=== PATIENT | male | born 1960 ===

== ENCOUNTER 2016-09-15 06:24 | Observation (INO) | payer OTHER, BC ==
[2016-09-15] MEDS ORDERED: TDAP Vaccine 0.5 mL Syr IM ONE (07:27)
--- NOTE | 2016-09-15 07:50 | ED PDOC ---
HPI: Head Injury Time Seen by Provider: 09/15/16 07:12 Chief Complaint (Nursing): Trauma Chief Complaint (Provider): Trauma History Per: Patient History/Exam Limitations: no limitations Injury Occurred (Timing): Just Before Arrival Patient States: Fell Striking Head Severity: Mild Loss Of Consciousness: No Additional Complaint(s): Patient is a 56 year old male who presents to ED for evaluation of a head injury sustained this morning. Patient states he was walking in the parking lot of his job when he slipped and fell backwards striking his head. Denies LOC, nausea or blurred vision. Notes pain to the area only. Past Medical History Reviewed: Historical Data, Nursing Documentation, Vital Signs Vital Signs: Last Vital Signs Temp 98 F 09/15/16 06:26 Pulse 72 09/15/16 06:26 Resp 16 09/15/16 06:26 BP 153/83 H 09/15/16 06:26 Pulse Ox 98 09/15/16 06:26 - Medical History PMH: Asthma, Hypercholesterolemia - Surgical History Surgical History: No Surg Hx - Family History Family History: States: No Known Family Hx - Living Arrangements Living Arrangements: With Family - Home Medications Home Medications: Ambulatory Orders Medication Instructions Recorded No Known Home Med 09/15/16 - Allergies Allergies/Adverse Reactions: Allergies Allergy/AdvReac Type Severity Reaction Status Date / Time No Known Allergies Allergy Verified 09/15/16 07:56 Review of Systems ROS Statement: Except As Marked, All Systems Reviewed And Found Negative Constitutional: Negative for: Weakness Eyes: Negative for: Vision Change Cardiovascular: Negative for: Chest Pain Gastrointestinal: Negative for: Nausea, Vomiting Musculoskeletal: Negative for: Neck Pain, Back Pain Neurological: Positive for: Headache. Negative for: Weakness, Numbness, Confusion, Dizziness Physical Exam - Reviewed Nursing Documentation Reviewed: Yes Vital Signs Reviewed: Yes - Physical Exam Appears: Positive for: Non-toxic, No Acute Distress Head Exam: Negative for: ATRAUMATIC (2cm laceration to occipital scalp mild active bleeding) Skin: Positive for: Normal Color, Warm Eye Exam: Positive for: Normal appearance, EOMI, PERRL Neck: Positive for: Normal, Painless ROM Cardiovascular/Chest: Positive for: Regular Rate, Rhythm. 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 Negative for: Motor/Sensory Deficits - ECG O2 Sat by Pulse Oximetry: 98 (RA) Pulse Ox Interpretation: Normal Medical Decision Making Medical Decision Making: Time: 709 Initial impression: Head injury Initial plan: -- tetanus -- CT-head Time: 834 CT-head results reviewed Impression: Small extra-axial right convexity high attenuation suspicious for subdural hemorrhage with maximum thickness of 4.5 mm. Close follow up reassessment after 6-12 hours is recommended Scribe Attestation: Documented by Thu Manriquez acting as a scribe for Yani Marie MD MD Scribe Attestation: All medical record entries made by the Scribe were at my direction and personally dictated by me. I have reviewed the chart and agree that the record accurately reflects my personal performance of the history, physical exam, medical decision making, and the department course for this patient. I have also personally directed, reviewed, and agree with the discharge instructions and disposition. 8.45a - CT findings noted. Awaiting neurosurgery to return phone call. Based on radiology recommendation, case d/w Dr. Bynum for observation admission. Disposition - Clinical Impression Clinical Impression: Subdural hematoma - Patient ED Disposition Is Patient to be Admitted: Yes Doctor Will See Patient In The: Hospital - Disposition Disposition: Transfer of Care Disposition Time: 08:55 Condition: FAIR - Pt Status Changed To: Hospital Disposition Of: Observation - POA Present On Arrival: Falls Or Trauma
--- NOTE | 2016-09-15 08:38 | CT ---
PROCEDURE: CT HEAD WITHOUT CONTRAST. HISTORY: slip fall with 2cm lac on occiput COMPARISON: None available. TECHNIQUE: Axial computed tomography images were obtained through the head/brain without intravenous contrast. Radiation dose: Total exam DLP = 861.23 mGy-cm. FINDINGS: HEMORRHAGE: There is trace/ small amount of extra-axial likely subdural hematoma at the right convexity best seen on the coronal images series 601 image 45. BRAIN: No mass effect or edema. No atrophy or chronic microvascular ischemic changes. VENTRICLES: Unremarkable. No hydrocephalus. CALVARIUM: Unremarkable. PARANASAL SINUSES: Moderate sinuses mucosal thickening seen more prominent in the ethmoid sinuses. MASTOID AIR CELLS: Unremarkable as visualized. No inflammatory changes. OTHER FINDINGS: None. IMPRESSION: Small extra-axial right convexity high attenuation suspicious for subdural hemorrhage with maximum thickness of 4.5 millimeter. Close follow-up reassessment after 06-12 hours is recommended. Moderate sinuses mucosal disease.
[2016-09-15 09:38] LABS: BASO # 0.2 K/uL (0.0-0.2); BASO % 1.2 % (0.0-2.0); EOS # 0.1 K/uL (0.0-0.7); EOS % 0.6 % (0.0-4.0); HEMATOCRIT 46.7 % (35.0-51.0); LYMPH # 1.6 K/uL (1.0-4.3); LYMPH % 11.6 % (20.0-40.0); MEAN CELL VOLUME 95.6 fl (80.0-94.0); MEAN CORPUSCULAR HEMOGLOBIN 31.8 pg (27.0-31.0); MEAN CORPUSCULAR HGB CONC 33.2 g/dL (33.0-37.0); MEAN PLATELET VOLUME 9.7 fl (7.2-11.7); MONO # 0.7 K/uL (0.0-0.8); MONO % 5.2 % (0.0-10.0); NEUT # 11.2 K/uL (1.8-7.0); NEUT % 81.4 % (50.0-75.0); WHITE BLOOD COUNT 13.8 K/uL (4.8-10.8)
[2016-09-15 09:45] LABS: BLOOD UREA NITROGEN 13 mg/dl (9-20); CALCIUM 9.9 mg/dL (8.4-10.2); CARBON DIOXIDE 29 mmol/L (22-30); CHLORIDE 99 mmol/L (98-107); GFR AFRICAN-AMERICAN > 60; GLUCOSE,RANDOM 107 mg/dL (75-110); POTASSIUM 4.3 MMOL/L (3.6-5.0); SODIUM 142 mmol/l (132-148)
--- NOTE | 2016-09-15 10:10 | HP ---
The patient is a 56-year-old male who had an accidental fall in the snow while attempting to get his bus at work. 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 He indicates that he did not lose consciousness and denies any headaches or dizziness. He had yumiko put in the back of his head where he had a scalp laceration in the occipital area. His CAT scan in the Emergency Room was remarkable for small extraaxial right convexity high attenuation suspicious for subdural hemorrhage with maximum thickness 4.5 mL. Close f ollowup was recommended for 6-12 hours. PAST MEDICAL HISTORY: Asthma and hyperlipidemia. FAMILY HISTORY: Noncontributory. 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 PHYSICAL EXAMINATION: GENERAL: The patient is alert and oriented, appears to be in no apparent distress. VITAL SIGNS: Blood pressure 144/56, pulse of 79, respiratory rate of 19. He is afebrile. O2 sat is 98% on room air. SKIN: Shows fair turgor. HEENT: Pupils equal and react to light and accommodation. There is a small laceration over the occi pital area with [address] NECK: JVP flat. LUNGS: Clear. HEART: Regular. No murmurs or gallops. ABDOMEN: Soft, nontender, no organomegaly. EXTREMITIES: Show no edema or cyanosis. GENITAL AND RECTAL: Deferred. CENTRAL NERVOUS SYSTEM: Grossly intact with no gross neuro deficits. LABORATORY DATA: Remarkable for WBC of 13.8, hemoglobin of 15.5, platelet count of 247,000. Sodium 142, potassium 4.3, BUN of 13, creatinine 0.9. IMPRESSION: Accidental fall with head trauma and small subdural hematoma. The Emergency Room doctor discussed the case with neurosurgeon rn practitioner and the advice was to repeat CT scan of the brain in ab out 6 hours and if clinically stable and no progression of the bleed, the patient could be discharged after appropriate period of observation later tonight. PLAN: To observe the patient in telemetry with neuro checks, repeat scan in 6 hours. Further therap y will depend on findings on the scan. The case was discussed at length with the patient was alert a nd oriented and understands the risks and benefits of observation and need to stay in hospital for th e next 12-24 hours. Harvinder Bynum MD cc: [id number] TT: 09/15/2016 10:09:43 tn
--- NOTE | 2016-09-15 15:02 | EEG ---
DATE: 09/15/2016 This is a 16-channel electroencephalogram of awake and drowsy adult. During the study, photic stimul ation was performed. Hyperventilation was not performed. The resting electroencephalogram consists of 30-50 microvolt, 9-11 Hz alpha activity seen at parietal and occipital leads. Anteriorly fast activity superimposed with 2-3 Hz delta activity seen. Interm ittent parietal lead artifacts noted with probably the muscle artifacts. The photic stimulation did not evoke driving response noted at 2-20 Hz. IMPRESSION: This is a normal electroencephalogram of awake and drowsy adult. During the study, neit her electroencephalographic paroxysmal activities nor focal slowing noted. Deepak Hernandez MD cc: [id number] TT: 09/15/2016 15:02:12 Confirmation # [id number] Dictation # [id number] tn
--- NOTE | 2016-09-15 15:41 | CT ---
PROCEDURE: CT HEAD WITHOUT CONTRAST. HISTORY: subdural hematoma/hx of fall COMPARISON: 09/15/2016 at 8:03 a.m. TECHNIQUE: Axial computed tomography images were obtained through the head/brain without intravenous contrast. Radiation dose: Total exam DLP = 843.88 mGy-cm. FINDINGS: HEMORRHAGE: There is no extra-axial hemorrhage. Curvilinear high attenuation seen on the current examination and an earlier examination of the same day represents a cortical vein. It can be seen draining into the superior sagittal sinus on coronal reformats on both the current and earlier examinations. The relative high attenuation of this cortical vein is also seen in the vessels of the [place] and likely represents dehydration/ hemoconcentration. There is no extra-axial hemorrhage. BRAIN: No mass effect or edema. No atrophy or chronic microvascular ischemic changes. VENTRICLES: Unremarkable. No hydrocephalus. CALVARIUM: Unremarkable. PARANASAL SINUSES: Chronic frontal, ethmoid and sphenoid sinusitis. MASTOID AIR CELLS: Unremarkable as visualized. No inflammatory changes. OTHER FINDINGS: None. IMPRESSION: No extra-axial hemorrhage. Prominent right-sided cortical vein. Right intracranial cerebral vessels and venous sinuses likely due to dehydration/hemoconcentration.
--- NOTE | 2016-09-15 16:17 | MRI ---
PROCEDURE: MRI BRAIN WITHOUT CONTRAST HISTORY: subdural hematoma COMPARISON: None. TECHNIQUE: Multiplanar, multisequence MR images of the brain were obtained without intravenous contrast enhancement. FINDINGS: HEMORRHAGE: No evidence of extra-axial or intra-axial hematoma. DWI: No evidence of an acute or early subacute infarction. BRAIN PARENCHYMA: No mass effect or edema. Few small foci of hyperintense T2 and FLAIR signal in the white matter likely represent mild chronic microvascular ischemic disease. VENTRICLES: Unremarkable. No hydrocephalus. CRANIUM: Unremarkable. ORBITS: Grossly unremarkable. PARANASAL SINUSES/MASTOIDS: Mild sinuses mucosal thickening seen. VASCULAR SYSTEM: Skull base flow voids intact. OTHER FINDINGS: None. IMPRESSION: No MRI evidence of intra-axial or extra-axial hematoma. Prominent extra-axial vessel or drainage vein seen along the right brain convexity corresponding to the high attenuation extra-axial structures seen in the previous CT. No evidence of acute intracranial pathology. Mild sinuses mucosal thickening.
--- NOTE | 2016-09-15 16:46 | CON ---
DATE: 09/15/2016 REASON FOR CONSULTATION: Status post trauma to the head and abnormal CAT scan. CHIEF COMPLAINT: The patient had a fall on the snow while he was attempting to get his bus at work. From the fall, injured his head. Since he is not feeling good, he decided to come to the hospital. HISTORY OF PRESENT ILLNESS: The patient is a 56-year-old right-handed male who was attempti ng to get his bus at work. As he slipped on the ice, he hit his head on the concrete. On the way, jay han bruised his head. He claims that about a fraction of a second he lost his consciousness and then h e got up on his own. No similar episodes happened in the past. No history of preceding warning on f ollowing this episode any involuntary movements, no history of bowel or bladder incontinence. At the Emergency Room, he had stitches over the occipital region. The CAT scan was read as mild subdural h ematoma. PAST MEDICAL HISTORY: Asthma and hyperlipidemia. FAMILY HISTORY: Noncontributory. SOCIAL HISTORY: He does not smoke now. He quit smoking a long time ago. He denies alcohol use. ALLERGIES: No known allergies. MEDICATIONS: He is on dose adjusted Tylenol for his headache. PHYSICAL EXAMINATION: VITAL SIGNS: Blood pressure 164/70, mean arterial pressure of 104, respiratory rate 16, temperature afebrile. NECK: Supple. No carotid bruit. HEART: Sounds regular. CHEST: Fair air entry. EXTREMITIES: No edema in legs. NEUROLOGIC EXAMINATION: MENTAL STATUS: He is awake, alert, oriented to person, place, and time. Speech is clear. Naming, r epetition, fluency, comprehension all within normal. CRANIAL NERVE: Visual field intact. Pupil reactive to light. Extraocular movements are normal. No nystagmus, no facial sensory deficit, no facial asymmetry. Hearing is normal. Tongue is midline. Good gag. MOTOR: On outstretched hand with eyes closed, no drift noted. Power is symmetric on either side. DEEP TENDON REFLEXES: Biceps, brachioradialis, triceps 1+, both knees are 1+. Both ankles are absen t. Plantars are downgoing. SENSORY: Grossly intact. COORDINATION: [id number]-[id number] test is intact. GAIT: Normal. CONCLUSION: Upon reviewing his history and neurological examination, the patient is presenting with post-concussion syndrome with subdural hematoma as per the CAT scan. The current examination does no t show any lateralizing sign. WORKUP: CT of the head reported as curvilinear high attenuation seen in the current examination. It can be the superior sagittal sinus (large cortical vein). Electroencephalogram is reviewed by me, does not show any paroxysmal activities. This is a normal el ectroencephalogram for his age. MRI of the brain is recommended to rule out any bleeding process. If the patient is stable for next 12-hour period, the patient can be discharged and should have a fol lowup visit with me. Deepak Hernandez MD cc: [id number] TT: 09/15/2016 16:45:57 Confirmation # [id number] Dictation # [id number] tn
[2016-09-16 05:36] VITALS: PULSE 66
[2016-09-16 07:55] VITALS: BP 113/66; RESP 20; TEMP 97.7; O2SAT 96
--- NOTE | 2016-09-16 08:43 | CP.PCM.DIS ---
Provider - Provider Date of Admission: 09/15/16 08:59 Attending physician: Harvinder Bynum MD Time Spent in preparation of Discharge (in minutes): 25 Diagnosis - Discharge Diagnosis (1) Accidental fall Status: Acute (2) Head trauma Status: Acute (3) Laceration of scalp Status: Acute Hospital Course - Lab Results Lab Results: Most Recent Lab Values WBC 13.8 K/uL (4.8-10.8) H 09/15/16 09:20 RBC 4.89 Mil/uL (4.40-5.90) 09/15/16 09:20 Hgb 15.5 g/dL (12.0-18.0) 09/15/16 09:20 Hct 46.7 % (35.0-51.0) 09/15/16 09:20 MCV 95.6 fl (80.0-94.0) H 09/15/16 09:20 MCH 31.8 pg (27.0-31.0) H 09/15/16 09:20 MCHC 33.2 g/dL (33.0-37.0) 09/15/16 09:20 RDW 13.0 % (11.5-14.5) 09/15/16 09:20 Plt Count 247 K/uL (130-400) 09/15/16 09:20 MPV 9.7 fl (7.2-11.7) 09/15/16 09:20 Neut % (Auto) 81.4 % (50.0-75.0) H 09/15/16 09:20 Lymph % (Auto) 11.6 % (20.0-40.0) L 09/15/16 09:20 [place] % (Auto) 5.2 % (0.0-10.0) 09/15/16 09:20 Eos % (Auto) 0.6 % (0.0-4.0) 09/15/16 09:20 Baso % (Auto) 1.2 % (0.0-2.0) 09/15/16 09:20 Neut # 11.2 K/uL (1.8-7.0) H 09/15/16 09:20 Lymph # 1.6 K/uL (1.0-4.3) 09/15/16 09:20 [place] # 0.7 K/uL (0.0-0.8) 09/15/16 09:20 Eos # 0.1 K/uL (0.0-0.7) 09/15/16 09:20 Baso # 0.2 K/uL (0.0-0.2) 09/15/16 09:20 Sodium 142 mmol/l (132-148) 09/15/16 09:20 Potassium 4.3 MMOL/L (3.6-5.0) 09/15/16 09:20 Chloride 99 mmol/L (98-107) 09/15/16 09:20 Carbon Dioxide 29 mmol/L (22-30) 09/15/16 09:20 Anion Gap 18 (10-20) 09/15/16 09:20 BUN 13 mg/dl (9-20) 09/15/16 09:20 Creatinine 0.9 mg/dL (0.8-1.5) 09/15/16 09:20 Est GFR ( Amer) > 60 09/15/16 09:20 Est GFR (Non-Af Amer) > 60 09/15/16 09:20 Random Glucose 107 mg/dL (75-110) 09/15/16 09:20 Calcium 9.9 mg/dL (8.4-10.2) 09/15/16 09:20 - Hospital Course Hospital Course: no neuro deficits scalp-laceration of occipital area clean-[address] Discharge Exam - Head Exam Head Exam: absent: ATRAUMATIC (2cm laceration to occipital scalp mild active bleeding) Additional comments: clean occipital laceration with surgical clips in place - Eye Exam Eye Exam: EOMI, Normal appearance, PERRL Pupil Exam: NORMAL ACCOMODATION, PERRL - GI/Abdominal Exam GI & Abdominal Exam: Normal Bowel Sounds - Rectal Exam Rectal Exam: NORMAL INSPECTION - Exam Exam: Circumcision, NORMAL INSPECTION External exam: NORMAL EXTERNAL EXAM Speculum exam: NORMAL SPECULUM EXAM Bimanual exam: NORMAL BIMANUAL EXAM - Neurological Exam Neurological exam: Alert, CN II-XII Intact, Normal Gait, Oriented x3, Reflexes Normal - Psychiatric Exam Psychiatric exam: Normal Affect, Normal Mood - Skin Skin Exam: Dry, Intact, Normal Color, Warm - Additional Findings Additional findings: mri of brain-no evidence of bleed Discharge Plan - Follow Up Plan Condition: FAIR Disposition: HOME/ ROUTINE Patient education suggested?: Yes Additional Instructions: d/c today follow up with pmd for staple removal keep out of work for at least 1 week return juanita er if worse
== END 2016-09-16 14:55 | disposition home or self-care (01) ==
LOC: H.ER 06:24 → H.ERHOLD 08:59 → H.TEL 10:07
PROVIDERS: ADMIT Internal Medicine Pulmonary Disease; ATTEND Internal Medicine Pulmonary Disease
DX: S06.5X0A Traumatic subdural hemorrhage without loss of consciousness, initial encounter (principal); F07.81 Postconcussional syndrome; S01.01XA Laceration without foreign body of scalp, initial encounter; E78.5 Hyperlipidemia, unspecified; J45.909 Unspecified asthma, uncomplicated; W00.0XXA Fall on same level due to ice and snow, initial encounter; Z23 Encounter for immunization; Z87.891 Personal history of nicotine dependence; Y93.01 Activity, walking, marching and hiking; Y92.480 Sidewalk as the place of occurrence of the external cause
CPT/HCPCS: 12001; 70450; 70551; 80048; 85025; 90471; 90715; 95816; 99285; G0378